=== PATIENT | female | born 1975 | race Caucasian/White ===

== ENCOUNTER 2019-08-29 00:03 | Emergency (ER) | payer BC, OTHER ==
[~2019-08-29] VITALS: Ht 152.4 cm; Wt 100.0 kg
[2019-08-29 00:22] LABS: BASOPHILS # (AUTO) 0.05 x10^3/uL (0-0.1); BASOPHILS % (AUTO) 1 % (0-1); EOSINOPHILS # (AUTO) 0.27 x10^3/uL (0-0.4); EOSINOPHILS % (AUTO) 3 % (1-7); LYMPHOCYTES # (AUTO) 3.12 x10^3/uL (1-3.4); LYMPHOCYTES % (AUTO) 34 % (22-44); MD NO; MEAN CORPUSCULAR HEMOGLOBIN 32.7 pg (27.0-34.8); MEAN CORPUSCULAR HGB CONC 33.2 g/dL (32.4-35.8); MEAN CORPUSCULAR VOLUME 98.6 fL (80-100); MEAN PLATELET VOLUME 6.8 fL (7.4-10.4); MONOCYTES # (AUTO) 0.66 x10^3/uL (0.2-0.8); MONOCYTES % (AUTO) 7 % (2-9); NEUTROPHILS # (AUTO) 5.17 x10^3/uL (1.8-6.8); NEUTROPHILS % (AUTO) 56 % (42-75); PLATELET COUNT 321 x10^3/uL (130-400); RED BLOOD COUNT 4.61 x10^6/uL (3.82-5.3); RED CELL DISTRIBUTION WIDTH 13.4 % (9.6-15.2)
[2019-08-29] MEDS ORDERED: SODIUM CHLORIDE 0.9% 1,000ML IVBOLUS ONE (00:30)
[2019-08-29] MEDS ORDERED: SODIUM CHLORIDE FLUSH 10ML SYR IVF ONE (00:30)
[2019-08-29 00:33] LABS: ALANINE AMINOTRANSFERASE 123 U/L (12-78); ALBUMIN 3.8 g/dL (3.4-5.0); ANION GAP 9 mmol/L (5-15); CALCIUM 8.7 mg/dL (8.5-10.1); CHLORIDE 113 mmol/L (98-107); SALICYLATE LEVEL 2.6 mg/dL (2.8-20.0)
[2019-08-29 00:43] LABS: ALKALINE PHOSPHATASE 82 U/L (45-117); BILIRUBIN,TOTAL 0.2 mg/dL (0.2-1.0); TOTAL PROTEIN 7.5 g/dL (6.4-8.2)
--- NOTE | 2019-08-29 01:28 | NUR ---
SHIRLEY RN: UA COLLECTED AND SENT TO LAB. IV STARTED AND IV FLUIDS INFUSING AT THIS TIME. VSS AND WILL CONT TO MONITOR.
[2019-08-29 01:32] LABS: HCG UR SG 1.011 (1.003-1.030)
[2019-08-29 01:37] LABS: CULTURE INDICATED? YES; MICROSCOPIC INDICATED
[2019-08-29 01:46] LABS: AMPHETAMINE SCREEN, URINE Negative (Negative); BARBITURATE SCREEN, URINE Negative (Negative); BENZODIAZEPINE SCREEN, URINE Negative (Negative); CANNABINOID SCREEN, URINE Negative (Negative); COCAINE SCREEN, URINE Negative (Negative); METHADONE SCREEN, URINE Negative (Negative); OPIATE SCREEN, URINE Negative (Negative)
[2019-08-29 04:29] LABS: ALBUMIN 3.4 g/dL (3.4-5.0); ANION GAP 5 mmol/L (5-15); CALCIUM 8.3 mg/dL (8.5-10.1); CHLORIDE 114 mmol/L (98-107)
[2019-08-29 04:30] LABS: CREATININE 0.57 mg/dL (0.55-1.02)
--- NOTE | 2019-08-29 04:57 | NUR ---
--JAIME HOBBS, GRANDMOTHER. STATES SHE WILL COME GET PT IF SHE NEEDS TRANSPORTATION HOME
--- NOTE | 2019-08-29 05:31 | NUR ---
PT RESTING IN BED, PT HAS NO COMPLAINTS
[2019-08-29 05:48] VITALS: BP 131/73
--- NOTE | 2019-08-29 06:35 | NUR ---
PT ASKED SI QUESTIONS AGIAN. PT ADAMANTLY DENIED AND SUICIDAL IDEATION AND STATED "I DO NOT WANT TOP BE , I WAS JUST SAD AND WANTED TO FALL A SLEEP, BUT NOT FOR EVER"
--- NOTE | 2019-08-29 06:35 | NUR ---
PT BROTHER CALLED AND SAID HE IS HEADED DOWN TO ER AND TO LET PT KNOW. PT BAL BREATHALIXER WAS 0.032
--- NOTE | 2019-08-29 06:50 | NUR ---
REPORT FROM SHERRY BEVERLY. PATIENT UP OUT OF BED GETTING DRESSED, REQUESTING TO LEAVE. AWARE, MD TO REASSESS PATIENT. AWAITING FURTHER ORDERS, RESP EVEN/UNLABORED. KIKE.
--- NOTE | 2019-08-29 07:08 | NUR ---
PATIENT DENIES SI/HI AT THIS TIME. PATIENT TO BE DC'D, AWAITING DC PAPERWORK.
--- NOTE | 2019-08-29 07:16 | NUR ---
Patient/Caregiver given discharge instructions and they have confirmed that they understand the instructions. Patient ambulatory with steady gait.
== END 2019-08-29 07:19 | disposition home or self-care (01) ==
LOC: ED 03:43
DX: T39.311A Poisoning by propionic acid derivatives, accidental (unintentional), initial encounter (principal); F10.120 Alcohol abuse with intoxication, uncomplicated; Y92.9 Unspecified place or not applicable
CPT/HCPCS: 36415; 80048; 80053; 80307; 81001; 81025; 82040; 85025; 87086; 99284; J7030